=== PATIENT | female | born 1970 | race American Indian/Alaskan Native ===

== ENCOUNTER 2020-09-29 11:13 | Emergency (ER) | payer MEDICARE ==
--- NOTE | 2020-09-29 13:07 | Emergency Department Report ---
ED General Adult HPI - General Chief complaint: Medical Clearance Stated complaint: ACCESS CLOTTED Time Seen by Provider: 09/29/20 12:29 Source: patient, family Mode of arrival: Ambulatory Limitations: No Limitations - History of Present Illness Initial comments: This is a 50-year-old female with end-stage renal disease who has not been dialyzed since last Tuesday (6 days ago). She does not report any acute symptoms. Specifically denies myalgias, fever, shortness of breath. She states that she went to dialysis but when they stick the needle into the proximal, I believe venous port, "all they get is clots". She states she feels a pulse and a thrill distally. She informed her vascular doctor who sent her to the emergency department for screening. I called the office. I was told the plan was declotting in the [facility]. Thus, we are proceeding with medical screening prior to the procedure to see what is necessary at this point to proceed. -: Gradual, days(s) Worsens with: other (No pain complaint) Associated Symptoms: denies other symptoms - Related Data Home Medications Medication Instructions Recorded Confirmed Last Taken Aspirin 325 mg PO DAILY 10/24/19 11/16/19 11/02/19 08:00 C-1000 200 mg PO DAILY 10/24/19 11/16/19 10/31/19 09:00 Cholecalciferol Vit D3 5,000 mg PO DAILY 10/24/19 11/16/19 10/31/19 09:00 Combigan 0.2%-0.5% Eye Drops 1 drop OTIC BID 10/24/19 11/16/19 11/15/19 21:00 Heparin 4 cc IM 4XW 10/24/19 11/16/19 11/15/19 08:00 Levemir VIAL 20 units SQ QAM 10/24/19 11/16/19 10/31/19 09:00 Losartan 100 mg PO DAILY 10/24/19 11/16/19 11/15/19 08:00 NovoLOG Mix 70/30 VIAL 50 cc SUB-Q QAM&QHS 10/24/19 11/16/19 11/12/19 20:00 Pravastatin 40 mg PO DAILY 10/24/19 11/16/19 11/15/19 21:00 Torsemide 40 mg PO DAILY 10/24/19 11/16/1920 08:00 Venofer 6 cc IM 4XW 10/24/19 11/01/19 11/15/19 08:00 NovoLOG 100 UNITS/ML VIAL 5 units SUB-Q BID 11/01/19 11/16/19 10/31/19 20:00 Previous Rx's Medication Instructions Recorded Last Taken Type oxyCODONE /ACETAMINOPHEN [Percocet 1 tab PO Q6HR PRN #24 tablet 11/01/19 11/08/19 08:00 Rx 5/325 mg] HYDROcodone/APAP 7.5-325 [Lucas 1 each PO Q6HR PRN #40 tablet 11/16/19 Unknown Rx 7.5/325] Allergies Allergy/AdvReac Type Severity Reaction Status Date / Time No Known Allergies Allergy Verified 10/24/19 17:37 ED Review of Systems ROS: Stated complaint: ACCESS CLOTTED Other details as noted in HPI Constitutional: denies: chills, fever Eyes: denies: eye pain, vision change ENT: denies: ear pain, throat pain Respiratory: denies: cough, shortness of breath Cardiovascular: denies: chest pain, palpitations Endocrine: no symptoms reported Gastrointestinal: denies: abdominal pain, vomiting Genitourinary: as per HPI Musculoskeletal: denies: back pain, arthralgia Skin: denies: rash, lesions Neurological: denies: headache, weakness, paresthesias Psychiatric: denies: anxiety, depression Hematological/Lymphatic: denies: easy bleeding, easy bruising ED Past Medical Hx - Past Medical History Previous Medical History?: Yes Hx Hypertension: Yes (taken off antihypertensives for orthostatic hypotension) Hx Heart Attack/AMI: No (CHF, last cardiology visit 1yr ago. No HF symptoms to day) Hx Congestive Heart Failure: Yes Hx Diabetes: Yes Hx Liver Disease: No Hx Renal Disease: Yes Hx Kidney Stones: Yes Hx HIV: No - Surgical History Past Surgical History?: No Hx Pacemaker: No Hx Internal Defibrillator: No Hx Breast Surgery: Yes (LT BREAST BX) - Social History Smoking Status: Never Smoker - Medications Home Medications: Home Medications Medication Instructions Recorded Confirmed Last Taken Type Aspirin 325 mg PO DAILY 10/24/19 11/16/19 11/02/19 08:00 History C-1000 200 mg PO DAILY 10/24/19 11/16/19 10/31/19 09:00 History Cholecalciferol Vit D3 5,000 mg PO DAILY 10/24/19 11/16/19 10/31/19 09:00 History Combigan 0.2%-0.5% Eye Drops 1 drop OTIC BID 10/24/19 11/16/19 11/15/19 21:00 History Heparin 4 cc IM 4XW 10/24/19 11/16/19 11/15/19 08:00 History Levemir VIAL 20 units SQ QAM 10/24/19 11/16/19 10/31/19 09:00 History Losartan 100 mg PO DAILY 10/24/19 11/16/19 11/15/19 08:00 History NovoLOG Mix 70/30 VIAL 50 cc SUB-Q QAM&QHS 10/24/19 11/16/19 11/12/19 20:00 History Pravastatin 40 mg PO DAILY 10/24/19 11/16/19 11/15/19 21:00 History Torsemide 40 mg PO DAILY 10/24/19 11/16/19 11/13/19 08:00 History Venofer 6 cc IM 4XW 10/24/19 11/01/19 11/15/19 08:00 History NovoLOG 100 UNITS/ML VIAL 5 units SUB-Q BID 11/01/19 11/16/19 10/31/19 20:00 History oxyCODONE /ACETAMINOPHEN [Percocet 1 tab PO Q6HR PRN #24 tablet 11/01/19 11/16/19 11/08/19 08:00 Rx 5/325 mg] HYDROcodone/APAP 7.5-325 [[place] 1 each PO Q6HR PRN #40 tablet 11/16/19 Unknown Rx 7.5/325] ED Physical Exam - General Limitations: Physical Limitation General appearance: alert, in no apparent distress - Head Head exam: Present: atraumatic, normocephalic - Eye Eye exam: Present: normal appearance. Absent: scleral icterus - ENT ENT exam: Present: mucous membranes moist - Neck Neck exam: Present: normal inspection - Respiratory Respiratory exam: Present: normal lung sounds bilaterally. Absent: respiratory distress - Cardiovascular Cardiovascular Exam: Present: regular rate, normal rhythm. Absent: systolic murmur, diastolic murmur, rubs, gallop - GI/Abdominal GI/Abdominal exam: Present: soft, normal bowel sounds. Absent: distended, tenderness, guarding, rebound - Extremities Exam Extremities exam: Present: other (Pulse present in the proximal graft. It is a bit boggy however. Very long graft. Thrill felt teeth sites distally. Neurovascular exam is intact.) - Back Exam Back exam: Present: normal inspection - Neurological Exam Neurological exam: Present: alert, oriented X3, CN II-XII intact. Absent: motor sensory deficit - Psychiatric Psychiatric exam: Present: normal affect, normal mood - Skin Skin exam: Present: warm, dry, intact, normal color. Absent: rash ED Course Vital Signs 09/29/20 09/29/20 09/29/20 11:19 16:55 17:01 Temperature 98.2 F Pulse Rate 91 H 77 Respiratory 17 10 L 12 Rate Blood Pressure 165/80 Blood Pressure 141/63 [Right] O2 Sat by Pulse 99 97 99 Oximetry - Reevaluation(s) Reevaluation #1: Discussed with the plan of vascular. Proceeding with medical screening. 09/29/20 13:07 Reevaluation #2: I noted the patient's labs were listed as ordered still more than an hour ago. I informed the charge nurse. I asked her to track on phlebotomy to make sure these tests are pending. She informed the patient was taken to the [facility] by Dr. Guillermo and his team. She stated that she would inform the [facility] of the need for laboratory draw again. 09/29/20 15:36 Reevaluation #3: Note per Dr. Guillermo: IMPRESSION: Successful fistulogram and venoplasty as descibed above with a [ ] angioplasty balloon. 09/29/20 17:43 Reevaluation #4: 1. Ultrasound-guided access of the left arm cephalic vein, antegrade 2. Fistulogram. 3. Angioplasty of the left innominate vein with a 12 mm x 40 mm angioplasty balloon (central dialysis access angioplasty). 4. Angioplasty of the mid to central left cephalic vein with a 9 mm x 40 mm angioplasty balloon 5. Ultrasound-guided access of the left arm cephalic vein, retrograde 6. Retrograde selection of the brachial artery in a retrograde fashion with angiography of the left upper extremity. 7. Angioplasty of the peripheral to mid cephalic vein with a 9 mm x 40 mm angioplasty balloon Anesthesia: local (With conscious sedation) Surgeon: STEVE GUILLERMO Estimated blood loss: minimal Condition: stable Disposition: other (ER) 09/29/20 17:52 Above note reviewed. Patient does not have discharge instructions or any oral guidance she says. I have paged vascular. I did not find any indication for emergency dialysis. ED Medical Decision Making - Lab Data Result diagrams: 09/29/20 16:13 09/29/20 16:13 Laboratory Results - last 24 hr 09/29/20 09/29/20 09/29/20 16:13 16:13 16:13 WBC 6.2 RBC 3.40 L Hgb 10.3 Hct 31.8 MCV 93 MCH 30 MCHC 33 RDW 15.9 H Plt Count 171 Lymph % (Auto) 36.2 H Wake % (Auto) 7.8 H Eos % (Auto) 2.4 Baso % (Auto) 0.5 Lymph # (Auto) 2.3 Wake # (Auto) 0.5 Eos # (Auto) 0.1 Baso # (Auto) 0.0 Seg Neutrophils % 53.1 Seg Neutrophils # 3.3 PT 14.6 INR 1.09 APTT 32.7 Sodium 141 Potassium 4.8 Chloride 103.7 Carbon Dioxide 19 L Anion Gap 23 BUN 66 H Creatinine 8.0 H Estimated GFR 6 BUN/Creatinine Ratio 8 Glucose 104 H Calcium 8.4 Phosphorus NT-Pro-B Natriuret Pep 1885 H Blood Type Antibody Screen 09/29/20 09/29/20 16:13 16:13 WBC RBC Hgb Hct MCV MCH MCHC RDW Plt Count Lymph % (Auto) Wake % (Auto) Eos % (Auto) Baso % (Auto) Lymph # (Auto) Wake # (Auto) Eos # (Auto) Baso # (Auto) Seg Neutrophils % Seg Neutrophils # PT INR APTT Sodium Potassium Chloride Carbon Dioxide Anion Gap BUN Creatinine Estimated GFR BUN/Creatinine Ratio Glucose Calcium Phosphorus 6.20 H NT-Pro-B Natriuret Pep Blood Type O POSITIVE Antibody Screen Negative - EKG Data -: EKG Interpreted by Me EKG shows normal: sinus rhythm, axis, intervals, QRS complexes, ST-T waves Rate: normal - EKG Data Interpretation: nonspecific ST-T wave velia (T wave was somewhat prominent but not grossly peak) - Radiology Data Radiology results: image reviewed (No acute finding) Critical care attestation.: If time is entered above; I have spent that time in minutes in the direct care of this critically ill patient, excluding procedure time. 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 You may use your graft for hemodialysis at home tonight. Referrals: FEMI THOMAS MD [Primary Care Provider] - 3-5 Days Usual, floor waxer [Other] - 3-5 Days STEVE GUILLERMO MD [Staff Physician] - 3-5 Days Time of Disposition: 18:41
--- NOTE | 2020-09-29 13:27 | XRay Report ---
XR chest 1V ap INDICATION / CLINICAL INFORMATION: hypertension COMPARISON: None available. FINDINGS: SUPPORT DEVICES: None. HEART / MEDIASTINUM: No significant abnormality. LUNGS / PLEURA: Lungs are clear. Costophrenic sulci are sharp. No pneumothorax. ADDITIONAL FINDINGS: No significant additional findings. IMPRESSION: 1. No acute findings. Signer Name: Shakeel Guo MD Signed: 09/29/2020 1:23 PM Workstation Name: [id number]
--- NOTE | 2020-09-29 13:35 | Consultation ---
History of Present Illness - Reason for Consult Consult date: 09/29/20 Fistula malfunction Requesting physician: KERRY MURPHY - History of Present Illness 50-year-old female with end-stage renal disease who has not been dialyzed since last Tuesday (6 days ago). She does not report any acute symptoms. Specifically denies myalgias, fever, shortness of breath. She states that she went to dialysis but when they stick the needle into the proximal, I believe venous port, "all they get is clots". She states she feels a pulse and a thrill distally. She informed her vascular doctor who sent her to the emergency department for screening. Vascular consulted. Patient has AV fistula malfunction with thrill and access. Requires fistulogram angioplasty, possible thrombectomy if there is thrombus within the access. Discussed with patient. Risks, benefits, and alternatives discussed. Patient agrees with procedure. ROS: Stated complaint: ACCESS CLOTTED Other details as noted in HPI Constitutional: denies: chills, fever Eyes: denies: eye pain, vision change ENT: denies: ear pain, throat pain Respiratory: denies: cough, shortness of breath Cardiovascular: denies: chest pain, palpitations Endocrine: no symptoms reported Gastrointestinal: denies: abdominal pain, vomiting Genitourinary: as per HPI Musculoskeletal: denies: back pain, arthralgia Skin: denies: rash, lesions Neurological: denies: headache, weakness, paresthesias Psychiatric: denies: anxiety, depression Hematological/Lymphatic: denies: easy bleeding, easy bruising Past Medical History Previous Medical History?: Yes Hx Hypertension: Yes (taken off antihypertensives for orthostatic hypotension) Hx Heart Attack/AMI: No (CHF, last cardiology visit 1yr ago. No HF symptoms today) Hx Congestive Heart Failure: Yes Hx Diabetes: Yes Hx Liver Disease: No Hx Renal Disease: Yes Hx Kidney Stones: Yes Hx HIV: No Surgical History Past Surgical History?: No Hx Pacemaker: No Hx Internal Defibrillator: No Hx Breast Surgery: Yes (LT BREAST BX) Social History Smoking Status: Never Smoker Medications and Allergies Allergies Allergy/AdvReac Type Severity Reaction Status Date / Time No Known Allergies Allergy Verified 10/24/19 17:37 Home Medications Medication Instructions Recorded Confirmed Last Taken Type Aspirin 325 mg PO DAILY 10/24/19 11/16/19 11/02/19 08:00 History C-1000 200 mg PO DAILY 10/24/19 11/16/19 10/31/19 09:00 History Cholecalciferol Vit D3 5,000 mg PO DAILY 10/24/19 11/16/19 10/31/19 09:00 History Combigan 0.2%-0.5% Eye Drops 1 drop OTIC BID 10/24/19 11/16/19 11/15/19 21:00 History Heparin 4 cc IM 4XW 10/24/19 11/16/19 11/15/19 08:00 History Levemir VIAL 20 units SQ QAM 10/24/19 11/16/19 10/31/19 09:00 History Losartan 100 mg PO DAILY 10/24/19 11/16/19 11/15/19 08:00 History NovoLOG Mix 70/30 VIAL 50 cc SUB-Q QAM&QHS 10/24/19 11/16/19 11/12/19 20:00 History Pravastatin 40 mg PO DAILY 10/24/19 11/16/19 11/15/19 21:00 History Torsemide 40 mg PO DAILY 10/24/19 11/16/19 11/13/19 08:00 History Venofer 6 cc IM 4XW 10/24/19 11/01/19 11/15/19 08:00 History NovoLOG 100 UNITS/ML VIAL 5 units SUB-Q BID 11/01/19 11/16/19 10/31/19 20:00 History oxyCODONE /ACETAMINOPHEN [Percocet 1 tab PO Q6HR PRN #24 tablet 11/01/19 11/16/19 11/08/19 08:00 Rx 5/325 mg] HYDROcodone/APAP 7.5-325 [[place] 1 each PO Q6HR PRN #40 tablet 11/16/19 Unknown Rx 7.5/325] Exam - Constitutional Vitals: Temp Pulse Resp BP Pulse Ox 98.2 F 91 H 17 141/63 99 09/29/20 11:19 09/29/20 11:19 09/29/20 11:19 09/29/20 11:19 09/29/20 11:19 General appearance: Present: no acute distress - EENT Eyes: Present: EOM intact ENT: hearing intact - Neck Neck: Present: supple - Respiratory Respiratory effort: normal - Extremities Extremities: abnormal (Thrill in left upper extremity AV access, bruising noted) - Abdominal General gastrointestinal: Present: soft, non-tender - Psychiatric Psychiatric: appropriate mood/affect, cooperative Results - Labs CBC & Chem 7: 09/29/20 16:13 Assessment and Plan 50-year-old female with end-stage renal disease who presents with AV fistula malfunction. Requires fistulogram angioplasty, possible thrombectomy, possible PermCath. Has not been dialyzed since Tuesday. Ordered BMP. Based on potassium, procedure will be performed.
[2020-09-29] MEDS ORDERED: ceFAZolin/Water 2 GM/20 ML 2 GM/20 ML SYRINGE IV ONE (13:39)
[2020-09-29] MEDS ORDERED: HEPARIN/NS 5000 UNIT/500ML 1,000 ML IR ONE (13:39)
[2020-09-29] MEDS ORDERED: HEPARIN 10,000 UNITS/10 ML VIAL ONE (13:39)
[2020-09-29] MEDS ORDERED: SODIUM CHLORIDE 0.9% 500 ML 0 ML ONE (13:40)
[2020-09-29] MEDS ORDERED: DEXTROSE 50% IN WATER (25GM) 50 ML SYRINGE IV ONE (13:59)
[2020-09-29] MEDS ORDERED: LIDOCAINE 1%/EPINEPHRINE 1:100,000 VIAL (20 ML) INFILTRATI ONE (14:20)
[2020-09-29] MEDS ORDERED: SODIUM CHLORIDE 0.9% 500 ML 500 ML ONE (14:23)
[2020-09-29] MEDS: fentaNYL 100 MCG/2 ML INJ ONE ×2 (14:25→14:50)
[2020-09-29] MEDS: MIDAZOLAM 2 MG/2 ML INJ ONE ×2 (14:25→14:50)
--- NOTE | 2020-09-29 15:38 | Operative Report ---
Operative Report Operative Report: EXAM: 1. Ultrasound-guided access of the left arm cephalic vein-hybrid graft, antegrade 2. Fistulogram. 3. Angioplasty of the left innominate vein with a 12 mm x 40 mm angioplasty balloon (central dialysis access angioplasty). 4. Angioplasty of the mid to central left cephalic vein-hybrid graft with a 9 m m x 60 mm angioplasty balloon 5. Ultrasound-guided access of the left arm cephalic vein-hybrid graft, retrograde 6. Retrograde selection of the brachial artery in a retrograde fashion with angiography of the left upper extremity. 7. Angioplasty of the peripheral to mid cephalic vein with a 9 mm x 60 mm angioplasty balloon DATE: 09/29/2020 CHEF DE PARTIE: STEVE GUILLERMO MD INDICATION: Left arm AV fistula malfunction MEDICATIONS: Please see nursing report for full details. DEVICES: 12 mm x 40 mm angioplasty balloon 9 mm x 60 mm angioplasty balloon PROCEDURE: The risks, benefits, and alternatives of the procedure were discussed and written informed consent was obtained. The patient was transported in stable condition to the angiography suite. The patient's left arm AV fistula was asse ssed by ultrasound and was patent. The patient was prepped and draped in a sterile fashion. Under ultrasound guidance, the left arm AV fistula was accessed with a 21-gauge micropuncture needle. The area was anesthetized prior to access. 0.018 inch wire was advanced through the micropuncture needle into the fistula and then the needle was exchanged for a 5 [place] transitional dilator. The inner dilator and wire were removed and a 0.035 inch wire was advanced through the venous outflow. The transitional dilator was exchanged for a 7 [place] short sheath. Fistulogram was performed of the venous outflow and central veins. Reflux into the arterial anastomosis was performed. Digital subtraction angiography was performed demonstrating patency of the arterial anastomosis, patency of the brachial artery proximal and distal to the anastomosis. Patency of the common ulnar and interosseous artery, and proximal radial, ulnar, and interosseous artery. The perianastomotic portion was patent. The peripheral portion of the cephalic vein had a 90% focal stenosis. The midportion of the cephalic vein was patent. The mid to central portion of the cephalic vein had a 50% narrowing as it became a graft with extensive full metal jacket stents in the axillary vein to near the subclavian vein. The stented portion of the axillary vein and subclavian gain was widely patent and based on the lack of in-stent restenosis was likely a stent graft. There is a 90% narrowing of the proximal left innominate vein. The SVC was patent. 12 mm x 40 mm angioplasty balloon was used to perform angioplasty of the left innominate vein. 9 mm x 60 mm angioplasty balloon was used to perform angioplasty of the mid to central cephalic vein. Digital subtraction angiography demonstrated less than 10% residual narrowing. Ultrasound-guided access was used to access the cephalic vein in a retrograde fashion. 0.018 inch wire was passed into the fistula and the needle was exchanged for 5 [place] transitional dilator. Glidewire was then used to access the brachial artery in a retrograde fashion. Transitional dilator was exchanged for a 6 [place] sheath. Catheter was then advanced over the wire and used to select the brachial artery in a retrograde fashion. Digital subtraction angiography was performed demonstrating the 90% narrowing of the peripheral cephalic vein. 9 mm x 60 mm angioplasty balloon was used to perform angioplasty of the peripheral cephalic vein. Digital subtraction angiography was repeated demonstrating no residual narrowing. At this point, all wires were removed and tip stuff devices were used to seal the arteriotomy achieving immediate hemostasis. Sterile dressing applied. Patient tolerated the procedure well. No immediate postprocedural complication. IMPRESSION: Successful peripheral dialysis access angioplasty Successful central dialysis access angioplasty
[2020-09-29 16:43] LABS: Basophils % (Auto) 0.5 % (0.0-1.8); Eosinophils # (Auto) 0.1 K/mm3 (0.0-0.4); Eosinophils % (Auto) 2.4 % (0.0-4.3); Hematocrit 31.8 % (30.3-42.9); Hemoglobin 10.3 gm/dl (10.1-14.3); Lymphocytes # (Auto) 2.3 K/mm3 (1.2-5.4); Lymphocytes % (Auto) 36.2 % (13.4-35.0); Mean Corpuscular HGB Conc 33 % (30-34); Mean Corpuscular Volume 93 fl (79-97); Monocytes # (Auto) 0.5 K/mm3 (0.0-0.8); Monocytes % (Auto) 7.8 % (0.0-7.3); Platelet Count 171 K/mm3 (140-440); Red Cell Distribution Width 15.9 % (13.2-15.2)
[2020-09-29 16:44] LABS: INR 1.09 (0.87-1.13)
[2020-09-29 16:45] LABS: Partial Thromboplastin Time 32.7 Sec. (24.2-36.6)
[2020-09-29 16:52] LABS: Calcium 8.4 mg/dL (8.4-10.2)
[2020-09-29] MEDS ORDERED: ONDANSETRON 4 MG/2 ML INJ ONE (17:00)
[2020-09-29] MEDS ORDERED: ONDANSETRON 4 MG/2 ML INJ IV ONE (17:03)
--- NOTE | 2020-09-29 17:08 | Post Operative Note ---
Date of procedure: 09/29/20 Pre-op diagnosis: AV fistula malfunction Post-op diagnosis: same Procedure: 1. Ultrasound-guided access of the left arm cephalic vein, antegrade 2. Fistulogram. 3. Angioplasty of the left innominate vein with a 12 mm x 40 mm angioplasty balloon (central dialysis access angioplasty). 4. Angioplasty of the mid to central left cephalic vein with a 9 mm x 40 mm angioplasty balloon 5. Ultrasound-guided access of the left arm cephalic vein, retrograde 6. Retrograde selection of the brachial artery in a retrograde fashion with angiography of the left upper extremity. 7. Angioplasty of the peripheral to mid cephalic vein with a 9 mm x 40 mm angioplasty balloon Anesthesia: local (With conscious sedation) Surgeon: STEVE GUILLERMO Estimated blood loss: minimal Condition: stable Disposition: other (ER)
[2020-09-29 19:02] VITALS: BP 159/71
--- NOTE | 2020-10-09 10:30 | Electrocardiograph Report ---
[facility] Test Date: 2020-09-29 Test Time: 16:46:23 Pat Name: FRANKIE VALDEZ Department: Room: Gender: F Software Developer: DESMOND : [id number] Requested By: KERRY MURPHY Order Number: [id number] Reading MD: Mayra Lipscomb Measurements Intervals Cross Rate: 81 P: 12 UT: 192 QRS: -18 QRSD: 95 T: 3 QT: 383 QTc: 445 Interpretive Statements Sinus rhythm Left ventricular hypertrophy No previous ECG available for comparison Electronically Signed On 10-09-2020 10:30:09 EDT by Mayra Lipscomb
== END 2020-09-29 19:02 | disposition home or self-care (01) ==
LOC: ED 11:13
DX: T82.858A Stenosis of other vascular prosthetic devices, implants and grafts, initial encounter (principal); I11.0 Hypertensive heart disease with heart failure; I50.9 Heart failure, unspecified; Z98.890 Other specified postprocedural states; Z79.899 Other long term (current) drug therapy; Y92.89 Other specified places as the place of occurrence of the external cause
CPT/HCPCS: 36415; 36902; 71045; 80048; 83880; 84100; 85025; 85610; 85730; 86850; 86900; 86901; 93005; 96374; 99284; C1725; C1769; C1894; J0690; J1644; J2250; J2405; J3010; J7040; Q9967